=== PATIENT | male | born 1955 | race Caucasian/White ===

== ENCOUNTER 2023-05-27 13:45 | Emergency (ER) | payer BC ==
[2023-05-27 14:26] VITALS: BP 139/86; PULSE 77; RESP 20; TEMP 98.1; BMI 28.4
[2023-05-27] MEDS ORDERED: LIDOCAINE HCL 2% (50ML VIAL) SQ ONE (14:34)
[2023-05-27] MEDS ORDERED: LIDOCAINE HCL 2% (20ML MULTI-DOSE VIAL) ONE (14:39)
[2023-05-27] MEDS ORDERED: DIPHTH,PERTUSS(ACELL),TET 0.5 ML DISP.SYRIN IM ONE (14:40)
[2023-05-27] MEDS: DIPHTH,PERTUSS(ACELL),TET 0.5 ML DISP.SYRIN IM ONE (14:44)
[2023-05-27] MEDS: TETANUS AND DIPHTHERIA TOXOID 0.5 ML DISP.SYRIN IM ONE (14:45)
== END 2023-05-27 15:30 | disposition home or self-care (01) ==
LOC: JERFT 13:45
PROC: 0HQFXZZ Repair Right Hand Skin, External Approach (ICD-10-PCS; principal; 2023-05-27)
PROC: 3E0234Z Introduction of Serum, Toxoid and Vaccine into Muscle, Percutaneous Approach (ICD-10-PCS; 2023-05-27)
DX: S61.210A Laceration without foreign body of right index finger without damage to nail, initial encounter (principal); W31.2XXA Contact with powered woodworking and forming machines, initial encounter
CPT/HCPCS: 90715; 99283-25